=== PATIENT | female | born 1995 | race Caucasian/White ===

== ENCOUNTER 2019-10-21 11:10 | Emergency (ER) | payer OTHER, SELFPAY ==
[2019-10-21 11:12] VITALS: BP 114/69; PULSE 81; RESP 18; TEMP 36.6; O2SAT 98; BMI 26.6
--- NOTE | 2019-10-21 11:28 | ED.VISSUMM ---
- ER Visit Summary Date of Service: 10/21/19 Chief Complaint: Rash History of Present Illness: The patient is a 23 F who presents with a rash to the right side of her abdomen that is been getting worse over the past 3 days. Patient states the rash is painful. Patient also states the rash is pruritic. Patient describes her pain as throbbing. Patient states the pain is over the right lower abdomen. Patient states the pain is worse with standing and better with laying flat. Patient denies any fevers or chills. Patient initially went to an urgent care was given a prescription for triamcinolone cream. Patient states this has not been helping. Physical Examination: Vital signs are stable. Patient is afebrile. Patient is in no acute distress. Heart was regular rate and rhythm. Lungs are clear and equal bilaterally. Abdomen is soft and nontender. Skin is warm and dry. There is a erythematous patchy rash along the right T10 dermatome. There are a few vesicles noted. There is no discharge or drainage. There is mild tenderness with palpation. There are no petechia noted. Cranial nerves II through XII are intact. There are no focal motor or sensory deficits. Emergency Department Course and Treatment: Patient was instructed to stop using the triamcinolone cream. Patient was given a prescription for Valtrex. Patient was instructed to follow-up with her primary care physician in 5 to 7 days. Patient understood and was agreeable with the plan. All questions were answered. Disposition: Discharge home Impression: Varicella-zoster This note was generated with [employer] dictation software. It may contain incorrect words, spelling, and punctuation that were not noted in review of the chart prior to signing ED Disposition - Plan for ED Patient: Disposition: Home or Assisted Living Diagnosis: Varicella zoster Instructions: ED Shingles Prescriptions: Valacyclovir HCl [Valtrex] 1,000 mg PO TID #21 tab Prescription Printed Referrals: Milli Presley MD [STAFF PHYSICIAN] - 5-7 Days
== END 2019-10-21 11:54 | disposition home or self-care (01) ==
LOC: ED 11:43
PROVIDERS: Emergency Provider Emergency Medicine; PCP Family Medicine
DX: B02.9 Zoster without complications (principal)
CPT/HCPCS: 99282

== ENCOUNTER 2020-10-26 08:42 | Emergency (ER) | payer OTHER, SELFPAY ==
[2020-10-26 08:42] VITALS: BP 110/85; PULSE 105; RESP 15; TEMP 35.7; O2SAT 96; BMI 27.9
--- NOTE | 2020-10-26 08:54 | EDS_ITS ---
HPI HPI - URI History of Present Illness Chief Complaint: Cold Sx Informant: patient Onset/Context/Timing Onset: Days (Onset of symptoms October 24) Context: Sudden Onset Timing: Continuous and Waxes and wanes Quality: Upper respiratory and headache Current Severity: Mild Maximum Severity: Moderate Worsened by: Not Worsened By Swallowing, Eating Solids and Drinking Liquids Associated Symptoms Associated Symptoms: Positive for Nasal Congestion, Headache, Myalgias, Nausea, Diarrhea, Shortness of Breath and Nonproductive cough; Negative for Sinus Pressure, Vomiting and Chest Pain Narrative Narrative: Patient is a 24-year-old female with history of MS who presents with viral type symptoms. Patient states she is unvaccinated. Patient states she has been exposed to individuals who have tested positive for Covid. She reports headache, she denies photophobia or neck stiffness. She denies ringing in ears, decreased hearing or discharge from ears. She does report nasal symptoms. Does report sore throat. She does have a moist nonproductive cough. She reports mild shortness of breath. She denies chest discomfort. She does report nausea with mild diarrhea. She denies dysuria, frequency, urgency or hematuria. She does endorse myalgias and arthralgias. She not noted any joint swelling. She states she took gabapentin for headache without improvement. Prior similar symptoms: No Recent Illness/Hospitalization: No ROS ROS ED Constitutional Constitutional ED: Reports chills, fever(s) and subjective; Denies sweats or weight loss Eyes Eyes: Denies blurry vision, change in vision or diplopia ENT ENT ED: Reports rhinorrhea and sore throat; Denies ear pain Cardiovascular Cardiovascular: Denies chest pain, orthopnea, palpitations, paroxysmal nocturnal dyspnea or racing heartbeat Respiratory/Chest Respiratory/Chest: Reports cough, dyspnea and dyspnea on exertion; Denies orthopnea, paroxysmal nocturnal dyspnea or sputum Gastrointestinal Gastrointestinal: Reports abdominal pain, diarrhea and nausea; Denies constipation, melena or vomiting Genitourinary Genitourinary ED: Denies dysuria, hematuria or urinary frequency Musculoskeletal Musculoskeletal: Reports arthralgias and myalgias; Denies back pain or neck pain Integumentary Denies rash Neurologic Neurologic: Reports headache(s) and weakness; Denies paresthesias Hematologic/Lymphatic Hematologic/Lymphatic: Denies easy bleeding or easy bruising [facility] Medical History (Updated 10/26/20 @ 10:[address] Kaiden Zamora MD) Multiple sclerosis Home Medications gabapentin 300 mg PO BID 10/26/20 [History Last Taken Unknown] natalizumab [Tysabri] 300 mg IV Q28D 10/26/20 [History Last Taken Unknown] Allergy/AdvReac Type Severity Reaction Status Date / Time erythromycin base Allergy Vomiting Verified 10/21/19 11:16 Penicillins Allergy Rash Verified 10/21/19 11:16 sulfamethoxazole Allergy Rash Verified 10/21/19 11:16 [From Bactrim] trimethoprim [From Bactrim] Allergy Rash Verified 10/21/19 11:16 no surgical history Social History (Updated 10/26/20 @ 08:[address] Kaiden Zamora MD) household members: none Smoking Status: Light Smoker (<10/day) alcohol intake: current alcohol intake frequency: other substance use type: marijuana EXAM Physical Exam Const Vital Signs: 10/26/20 08:42 10/26/20 09:52 Temperature 96.2 F L Temperature Source Temporal Pulse Rate 105 H Respiratory Rate 15 Respiratory Effort Normal Non-Labored Respiratory Depth Normal Respiratory Pattern Normal Blood Pressure 110/85 H Blood Pressure Mean 93 Pulse Ox 96 Oxygen Delivery Method Room Air Room Air Positive well nourished and well developed; Negative for obese General Appearance ED: well developed and NAD; Negative for pallor Nutritional Appearance: Negative for obese HEENT Reports TM's clear and moist mucous membranes normocephalic External Ear: external ears normal and external ear abnormal Tympanic Membrane ED: Yes TM's clear Throat: posterior oropharynx normal Eyes PERRL and EOMs intact bilaterally General Eye ED: Negative for pale conjunctiva or scleral icterus Neck no lymphadenopathy, supple, no meningeal signs and no JVD Resp normal respiratory effort and clear to auscultation bilaterally Cardio S1 normal heart sound, S2 normal heart sound and no murmurs Rate: bradycardia Rhythm: regular rhythm GI non-tender, non-distended and no masses Auscultation: normoactive bowel sounds Palpation: soft Back/Spine no CVA tenderness Cervical Spine: Negative for cervical spine tenderness Lumbar Spine / Lower Back: Negative for lumbar spinal tenderness Extremity normal to inspection and full ROM General Extremety ED: Negative for cyanosis General Extremity: Negative for cyanosis Neuro oriented x3 and CN's II-XII intact bilaterally Sensorium / Orientation: alert Psych mental status grossly normal Skin General Skin Exam: Negative for jaundice or pallor Lesions: no lesions Rashes: no rashes MDM MDM MDM Narrative Medical decision making narrative: She presents with viral-like symptoms. This may represent Covid. Patient had appropriate blood work obtained to rule out anemia, renal dysfunction or electrolyte abnormality. If Covid test is positive patient is a candidate for monoclonal antibody therapy. She received 50 mg Toradol IV push for her headache. Patient was reassessed at 1010. Patient is smiling and talking on the phone. Her headache has improved markedly. Plan is to discharge to home Lab Data Attestation: I reviewed the patient's lab results. Lab results narrative: Laboratory results are unremarkable. Will have patient follow-up for monoclonal antibody therapy. Labs: Laboratory Results - last 24 hr 10/26/20 10/26/20 10/26/20 09:16 09:16 09:16 WBC 5.1 RBC 4.76 Hgb 14.4 Hct 45.4 MCV 95.4 MCH 30.3 MCHC 31.7 L RDW Std Deviation 48.5 H RDW Coeff of [place] 13.8 Plt Count 142 L MPV 10.6 Immature Gran % (Auto) 0.400 Neut % (Auto) 61.2 Lymph % (Auto) 21.6 [place] % (Auto) 15.6 H Eos % (Auto) 0.8 Baso % (Auto) 0.4 Absolute Neuts (auto) 3.1 Absolute Lymphs (auto) 1.11 Nucleated RBC % 0 Sodium 139 Potassium 4.0 Chloride 105 Carbon Dioxide 26.0 Anion Gap 8 BUN 11 Creatinine 0.83 Estim Creat Clear Calc 113.02 Est GFR (MDRD) Af Amer 108 Est GFR (MDRD) Non-Af 89 BUN/Creatinine Ratio 13.3 Glucose 106 Lactic Acid 0.8 Calcium 8.6 Total Bilirubin 0.40 AST 15 ALT 21 Alkaline Phosphatase 55 Total Protein 7.5 Albumin 3.7 Globulin 3.8 Albumin/Globulin Ratio 1.0 Radiography Diagnostic Testing: Radiology Impression Chest X-Ray 10/26/20 09:50 IMPRESSION: Normal x-ray examination of the chest. Electronically Signed: Guillermina Mi MD at 10:04 EDT Tel , Service support , Review chest x-ray reveals normal cardiac silhouette and size. Mediastinum is normal. There is no hilar lymphadenopathy. Osseous structures are unremarkable. There is no evidence of infiltrate or effusion. Rhythm Strip Rhythm Strip: Sinus Tach Rate: 102 Ectopy: None Discharge Plan Triage Chief Complaint: Cold Sx ED Provider: Kaiden Zamora Dx/Rx/DC Orders Clinical Impression: COVID-19 virus infection Instructions: Coronavirus Disease 2019 (COVID-19): Overview, Coronavirus Disease 2019 (COVID-19): Caring for Yourself or Others Prescriptions: No Action gabapentin 300 mg capsule 300 mg PO BID RF: 0 Tysabri 300 mg/15 mL Solution 300 mg IV Q28D RF: 0 Other Ambulatory Orders: COVID Outpatient Monoclonal Antibody Referral (Routine) Timeframe: 1 Day Facility: [facility] - Location: [facility] Ordered By: Dr. Kaiden Zamora Primary Care Provider: Drake Man Referrals: Drake Man MD [Primary Care Provider] - 10-14 Days if not better Disposition Disposition: Home, Self Care
[2020-10-26 09:29] LABS: Absolute Lymphocyte Count 1.11 X10^3/uL (0.83-4.51); Absolute Neutrophil Count 3.1 X10^3/uL (2.0-7.7); Basophil# 0.02 X10^3/uL; Basophil% 0.4 % (0-1); Eosinophil# 0.04 X10^3/uL; Eosinophils% 0.8 % (0-5); Hematocrit 45.4 % (37-47); Hemoglobin 14.4 g/dL (12.0-15.0); Lymphocyte # 1.11 X10^3/ul (0.83-4.51); Lymphocyte % 21.6 % (19-41); Mean Corp Hgb Conc 31.7 g/dL (32-36); Mean Corpuscular Hgb 30.3 pg (27.0-32.0); Mean Corpuscular Volume 95.4 fL (81-99); Mean Platelet Vol. 10.6 fl (6.2-12.0); Monocyte% 15.6 % (0-10); NRBC Flagged by Analyzer 0 % (0-5); Neutrophil # 3.14 X10^3/uL (2.7-7.7); Neutrophil % 61.2 % (47-70); Platelet Count 142 K/mm3 (150-450); RBC Distribution Width CV 13.8 % (11.6-14.6); RBC Distribution Width SD 48.5 fl (35.1-43.9); Red Blood Count 4.76 M/mm3 (4.2-5.4); White Blood Count 5.1 K/mm3 (4.4-11.0)
[2020-10-26 09:43] LABS: AST(SGOT) 15 U/L (15-37); Alanine Aminotransfer ALT/SGPT 21 U/L (13-56); Albumin, Serum 3.7 g/dL (3.2-5.0); Alkaline Phosphatase 55 U/L (45-117); Anion Gap 8 (5-15); BUN 11 mg/dL (7-18); BUN/Creat Ratio 13.3 RATIO (10-20); Calcium,Total 8.6 mg/dL (8.5-10.1); Chloride 105 mmol/L (98-107); Creatinine, Serum 0.83 mg/dL (0.55-1.02); EST Glomerular Filtration Rate 89 mL/min (>60); Est Glom Filt Rate - Afr Amer 108 mL/min (>60); Estimated Creatinine Clearance 113.02 ml/min; Globulin 3.8 g/dL (2.2-4.2); Glucose 106 mg/dL (74-106); Protein, Total 7.5 g/dL (6.4-8.2); Sodium Level 139 mmol/L (136-145)
[2020-10-26] MEDS: Ketorolac 15 MG/ML Vial IV (09:49)
--- NOTE | 2020-10-26 09:50 | RAD_ITS ---
STUDY: X-RAY CHEST REASON FOR EXAM: Female, 24 years old. Cough TECHNIQUE: Single AP portable view of the chest. COMPARISON: None. FINDINGS: The lungs are clear and expanded. There is no demonstrated pleural abnormality. Normal size heart. Normal mediastinum and luan. Normal visualized pulmonary arteries. Normal visualized aortic arch and descending thoracic aorta. Normal visualized thoracic spine. Normal visualized ribs, clavicles, and shoulders. There is no demonstrated abnormality of the visualized soft tissue structures of the upper abdomen. RAD/Chest 1 View (Portable) IMPRESSION: Normal x-ray examination of the chest. Electronically Signed: Guillermina Mi MD at 10:04 EDT Tel , Service support ,
[2020-10-26 09:52] VITALS: O2SAT 100
[2020-10-26 09:54] LABS: Lactic Acid 0.8 mmol/L (0.4-1.9)
[2020-10-26 10:29] VITALS: BP 120/84; PULSE 77; RESP 17; O2SAT 98
== END 2020-10-26 10:29 | disposition home or self-care (01) ==
PROVIDERS: Emergency Provider Emergency Medicine; PCP Family Medicine
DX: U07.1 COVID-19 (principal); F17.200 Nicotine dependence, unspecified, uncomplicated; G35 Multiple sclerosis; Z79.899 Other long term (current) drug therapy
CPT/HCPCS: 71045; 80053; 83605; 85025; 87426; 96374; 99284; A4216

== ENCOUNTER 2020-10-27 15:09 | Outpatient (CLI) | payer OTHER, SELFPAY ==
[2020-10-27] MEDS: 0.9% Saline Lock 10 ML Syringe IV (15:32)
[2020-10-27 15:36] VITALS: BP 123/86; PULSE 95; RESP 16; TEMP 36.7; O2SAT 100; BMI 28.8
[2020-10-27 16:07] VITALS: BP 119/71; PULSE 78; RESP 16; TEMP 36.5; O2SAT 100
[2020-10-27 17:07] VITALS: BP 128/76; PULSE 85; RESP 16; TEMP 36.6; O2SAT 98
== END 2020-10-27 17:20 | disposition home or self-care (01) ==
LOC: ICUOUT 15:09 → MS2 15:10
PROVIDERS: PCP Family Medicine; Referring Provider Nurse Practitioner Acute Care; Visit Provider Nurse Practitioner Acute Care
DX: Z23 Encounter for immunization (principal); U07.1 COVID-19
CPT/HCPCS: J7050; M0243; A4216; Q0244